=== PATIENT | female | born 1945 | race Caucasian/White ===

== ENCOUNTER 2018-02-18 20:10 | Emergency (ER) | payer OTHER ==
[~2018-02-18] VITALS: Ht 157.5 cm; Wt 55.8 kg
[2018-02-18] MEDS ORDERED: LOSARTAN POTASS25 MG (20:23)
[2018-02-18] MEDS ORDERED: LEXAPRO5 MG (20:24)
[2018-02-18] MEDS ORDERED: LIPITOR20 MG (20:24)
[2018-02-18] MEDS ORDERED: SYNTHROID75 MCG (20:24)
[2018-02-18] MEDS ORDERED: PANTOPRAZOLE SO40 MG (20:24)
[2018-02-19] MEDS ORDERED: PEPCID40 MG PO (06:36)
[2018-02-19] MEDS ORDERED: INTESTINEX680 M1 PO (06:36)
[2018-02-20] MEDS ORDERED: METOCLOPRAMIDE10 MG PO (19:57)
[2018-02-20] MEDS ORDERED: MECLIZINE HCL25 MG PO (19:57)
== END 2018-02-19 06:53 | disposition home or self-care (01) ==
LOC: ER 20:10 → EDBD 20:20 → ER 20:20
DX: R19.7 Diarrhea, unspecified (principal); R42 Dizziness and giddiness

== ENCOUNTER 2018-02-20 11:34 | Emergency (ER) | payer OTHER ==
[~2018-02-20] VITALS: Ht 157.5 cm; Wt 59.0 kg
[~2018-02-20 11:34] MED LIST: INTESTINEX680 M1 PO; LEXAPRO5 MG; LIPITOR20 MG; LOSARTAN POTASS25 MG; PANTOPRAZOLE SO40 MG; PEPCID40 MG PO; SYNTHROID75 MCG
[2018-02-20] MEDS ORDERED: METOCLOPRAMIDE10 MG PO (19:57)
[2018-02-20] MEDS ORDERED: MECLIZINE HCL25 MG PO (19:57)
== END 2018-02-20 20:14 | disposition home or self-care (01) ==
LOC: ER 11:34
DX: R42 Dizziness and giddiness (principal); H81.11 Benign paroxysmal vertigo, right ear